=== PATIENT | female | born 1965 | race Caucasian/White ===

== ENCOUNTER 2018-02-27 07:00 | Day surgery (SDC) | payer BC ==
[2018-02-27] MEDS ORDERED: Lactated Ringers 1,000 ML IV SCH (07:30)
[2018-02-27] MEDS ORDERED: fentaNYL 100 MCG/2 ML SDV ONE (08:16)
[2018-02-27] MEDS ORDERED: Propofol 200 MG/20 ML SDV ONE ×2 (08:16→08:56)
[2018-02-27] MEDS ORDERED: Midazolam 1 MG/ML 2 ML SDV ONE (08:16)
[2018-02-27 10:35] VITALS: BP 139/89
--- NOTE | 2018-02-27 11:52 | OR ---
DATE OF PROCEDURE: 02/27/2018 PREOPERATIVE DIAGNOSIS: Colon cancer screening. POSTOPERATIVE DIAGNOSIS: Unremarkable colonoscopy. PROCEDURE: Colonoscopy to the cecum. SURGEON: Leoncio Adam MD. ANESTHESIA: IV anesthesia with monitored anesthesia care. INDICATION: This 52-year-old white female is referred for her first colonoscopy for screening. 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 I counseled her for a colonoscopy including risks and alternatives, and she gave her informed consent to proceed. DESCRIPTION OF PROCEDURE: The patient was placed in the left lateral decubitus position. IV anesthesia was administered by the Anesthesia Service. Time-out was held. A rectal exam was performed, which was unremarkable. The flexible video Olympus colonoscope was introduced through her anus, up her rectum and out her colon all the way to the cecum. Once the cecum was reached, the scope was slowly withdrawn examining the mucosa throughout. No mucosal abnormalities were noted. The scope was retroflexed in the rectum with the distal rectum appearing unremarkable. The scope was straightened and removed. She tolerated the procedure well. Leoncio Adam MD /[id number] MTDD
== END 2018-02-27 11:00 | disposition home or self-care (01) ==
LOC: JP.SDS 07:00
PROVIDERS: ATTEND Surgery
DX: Z12.11 Encounter for screening for malignant neoplasm of colon (principal); Z87.19 Personal history of other diseases of the digestive system; Z88.0 Allergy status to penicillin; Z88.1 Allergy status to other antibiotic agents
CPT/HCPCS: 45378; 81025; J2250; J2704; J3010; J7120